=== PATIENT | male | born 1975 | race African-American/Black ===

== ENCOUNTER → 2021-03-12 | Outpatient (CLI) | payer BC ==
[~2021-03-12] MED LIST: APPLE CIDER VI500 MG PO; ATORVASTATIN CA40 MG PO; ELDERBERRY-VIT1 EACH PO; IBUPROFEN 600600 M1 PO; MOBIC7.5 MG PO; MULTI VITAMIN1 EACH PO; NORCO 5-325 TA1 EACH PO; ZOFRAN ODT4 MG PO; [UNRECOGNIZED DRUG - OTHER] PO
== END ==
LOC: LAB 08:22
PROVIDERS: ATTEND Student in an Organized Health Care Education/Training Program
DX: Z01.812 Encounter for preprocedural laboratory examination (principal); Z20.822 Contact with and (suspected) exposure to COVID-19

== ENCOUNTER → 2021-03-16 | Outpatient (CLI) | payer BC ==
[~2021-03-16] VITALS: Ht 193 cm; Wt 158.8 kg
--- NOTE | 2021-03-17 14:07 | PATH ---
[facility] [place] [address] PATHOLOGY RPT PROCEDURE Name: LILLIANA URIAS Room #: REG BECKY Castaneda.#: [id number] Admission: 03/16/21 Date of : 75 Discharge: Report #: [id number] Path Case #: [id number] [facility] Accession Number: [id number] . 01 Material submitted: . PART A: sigmoid colon - SIGMOD COLON POLYP X2 PART B: rectum - RECTAL COLON POLYP X1 . 01 Clinical history: . COLON SCREENING COLON POLYPS . 02 Diagnosis: A. Sigmoid colon polyps x 2, polypectomy: - Hyperplastic polyps. - Negative for high grade dysplasia or malignancy. . B. Rectal colon polyp, polypectomy: - Hyperplastic polyp. - Negative for atypia or malignancy. (ANK/db; 03/17/2021) LBQ 03/17/2021 1038 Local . 02 Electronically signed: . Danitza Hart MD, Pathologist NPI- [id number] . 01 Gross description: . A. The specimen is received in formalin, labeled "Lilliana Urias, sigmoid colon polyp". Received are 2 segments of pale chang to red-brown tissue measuring 0.4 and 1.0 cm in maximum dimensions. The specimen is entirely submitted in cassette A1. . B. The specimen is received in formalin, labeled "Lilliana Urias, rectal colon polyp". Received are 2 segments of pale chang tissue both measuring 0.2 cm in maximum dimension. The specimen is entirely submitted in cassette B1. ([facility]; 03/16/2021) NRI/NRI 03/16/2021 1654 Local . 02 Pathologist provided ICD-10: K63.5, K62.1 . 02 CPT . 634389, [id number] Specimen Comment: A courtesy copy of this report has been sent to [phone], [place] [address] PATHOLOGY RPT PROCEDURE Name: LILLIANA URIAS Room #: REG [facility]#: [id number] Admission: 03/16/21 Date of : 75 Discharge: Report #: [id number] Path Case #: [id number] Specimen Comment: [id number] Specimen Comment: Report sent to / DR ADAMS Performed at: [address], [place], [place] [id number] MD Huseyin Dixon MD Phone: [phone] Performed at: [address] [id number] MD India Castro MD Phone: [phone]
== END | disposition home or self-care (01) ==
LOC: GI
PROVIDERS: ATTEND Internal Medicine Gastroenterology
DX: Z12.11 Encounter for screening for malignant neoplasm of colon (principal); K62.1 Rectal polyp; K63.5 Polyp of colon; E78.5 Hyperlipidemia, unspecified; Z98.890 Other specified postprocedural states; Z79.899 Other long term (current) drug therapy
CPT/HCPCS: 62110; 62900